=== PATIENT | male | born 1955 | race Caucasian/White ===

== ENCOUNTER 2017-06-12 08:31 | Emergency (ER) | payer OTHER ==
[~2017-06-12] VITALS: Ht 175.3 cm; Wt 81.7 kg
[~2017-06-12 08:31] MED LIST: ASPI325EC PO; ATOR40TA PO; B-12500 MCG PO; CLOP75 PO; DIAZ5 PO; Endocet 7.5-321 EACH PO; FENT25TP TOP; FISH1000 PO; FLAX PO; FOLI1 PO; FOLI400 PO; Garlic1000 MG PO; LISHYD2012 PO; MAGCHL64ER PO; NIAC250ER PO; NIAC500 PO; Nitrostat0.4 MG SL; OMEP40CA12 PO; OMEPRAZOLE MAGN20 MG PO; ONDA4ODT MM; Oxycodone HCl20 M1 PO; POTA10T PO; PRAV10 PO; Prinivil10 MG PO
[2017-06-12] MEDS ORDERED: IBUP800 PO (10:10)
[2017-06-12] MEDS ORDERED: Robaxin500 MG PO (10:10)
[2017-06-12] MEDS ORDERED: Norco 5-325 Ta1 EACH PO (10:10)
[2017-06-12] MEDS ORDERED: Voltaren100 GM TOP (10:10)
== END 2017-06-12 10:38 | disposition home or self-care (01) ==
LOC: ER 08:31
DX: M54.5 Low back pain (principal); I25.2 Old myocardial infarction; Z88.5 Allergy status to narcotic agent; Z79.899 Other long term (current) drug therapy; Z79.82 Long term (current) use of aspirin; Z90.49 Acquired absence of other specified parts of digestive tract; Z90.89 Acquired absence of other organs
CPT/HCPCS: 96372; 99283; J1885

== ENCOUNTER 2019-04-01 08:21 | Day surgery (SDC) | payer OTHER ==
[~2019-04-01] VITALS: Ht 172.7 cm; Wt 82.8 kg
[~2019-04-01 08:21] MED LIST changes: +IBUP800 PO; +Norco 5-325 Ta1 EACH PO; +Robaxin500 MG PO; +Voltaren100 GM TOP
[2019-04-01] MEDS ORDERED: TRIA50 (08:51)
== END 2019-04-01 10:26 | disposition home or self-care (01) ==
LOC: ORSCSDS 08:21
PROVIDERS: Internal Medicine Gastroenterology
PROC: 0DB58ZX Excision of Esophagus, Via Natural or Artificial Opening Endoscopic, Diagnostic (ICD-10-PCS; principal; 2019-04-01 09:45)
DX: K74.60 Unspecified cirrhosis of liver (principal); G47.30 Sleep apnea, unspecified; E78.5 Hyperlipidemia, unspecified; I10 Essential (primary) hypertension; I25.2 Old myocardial infarction; K76.0 Fatty (change of) liver, not elsewhere classified; E83.119 Hemochromatosis, unspecified; Z79.82 Long term (current) use of aspirin; Z79.899 Other long term (current) drug therapy
CPT/HCPCS: 88305; J2704; J7120

== ENCOUNTER 2020-02-04 14:40 | Day surgery (SDC) | payer OTHER ==
[~2020-02-04] VITALS: Ht 175.3 cm; Wt 82.5 kg
[~2020-02-04 14:40] MED LIST changes: +TRIA50
--- NOTE | 2020-02-04 17:30 | NUR ---
02/04/20 1730 Brooklyn Francis PT. SHAKING WHEN MORE AWAKE. PT. VERBALIZES BEING A LITTLE COLD. PT. GIVEN WARM BLANKETS. PT. DENIES PAIN OR NAUSEA.
--- NOTE | 2020-02-04 19:40 | NUR ---
02/04/201939 Brooklyn Francis 1934 PT. VERBALIZES READY TO GO HOME. PT. & HIS GIVEN DISCHARGED INSTRUCTIONS FOR HOME WITH UNDERSTANDING.
== END 2020-02-04 19:45 | disposition home or self-care (01) ==
LOC: ORSCSDS 14:40
PROVIDERS: Podiatrist Foot & Ankle Surgery
PROC: 0QSJ04Z Reposition Right Fibula with Internal Fixation Device, Open Approach (ICD-10-PCS; principal; 2020-02-04 16:00)
DX: S82.61XA Displaced fracture of lateral malleolus of right fibula, initial encounter for closed fracture (principal); I10 Essential (primary) hypertension; E78.5 Hyperlipidemia, unspecified; I25.10 Atherosclerotic heart disease of native coronary artery without angina pectoris; G47.33 Obstructive sleep apnea (adult) (pediatric); I25.2 Old myocardial infarction; Z79.899 Other long term (current) drug therapy; Z79.82 Long term (current) use of aspirin
CPT/HCPCS: C1713; J0171; J0690; J1100; J2250; J2405; J2704; J3010; J7120

== ENCOUNTER 2021-06-13 10:13 | Day surgery (SDC) | payer MEDICARE, OTHER ==
[~2021-06-13] VITALS: Ht 175.3 cm; Wt 87.2 kg
== END 2021-06-13 12:36 | disposition home or self-care (01) ==
LOC: ORSCSDS 10:13
PROVIDERS: Internal Medicine Gastroenterology
PROC: 0DJ08ZZ Inspection of Upper Intestinal Tract, Via Natural or Artificial Opening Endoscopic (ICD-10-PCS; principal; 2021-06-13 11:30)
DX: K74.60 Unspecified cirrhosis of liver (principal); Z13.810 Encounter for screening for upper gastrointestinal disorder; K44.9 Diaphragmatic hernia without obstruction or gangrene; I10 Essential (primary) hypertension; I25.2 Old myocardial infarction; K21.9 Gastro-esophageal reflux disease without esophagitis; G47.33 Obstructive sleep apnea (adult) (pediatric); I25.10 Atherosclerotic heart disease of native coronary artery without angina pectoris; Z87.891 Personal history of nicotine dependence
CPT/HCPCS: J2704; J7120

== ENCOUNTER → 2022-03-13 | Outpatient (CLI) | payer MEDICARE, OTHER ==
[2022-03-13 13:58] LABS: Percent Saturation 49.6 % (20.0-50.0)
== END | disposition home or self-care (01) ==
LOC: LAB SHORT 11:30 → LAB 11:30
PROVIDERS: Internal Medicine Hematology & Oncology
DX: E83.119 Hemochromatosis, unspecified (principal)
CPT/HCPCS: 82728; 83540; 83550

== ENCOUNTER 2023-03-19 10:41 | Day surgery (SDC) | payer MEDICARE, OTHER ==
[2023-03-19] MEDS ORDERED: ASPIR 8181 M1 PO (11:36)
[2023-03-19 11:44] VITALS: BP 152/81
--- NOTE | 2023-03-19 12:45 | NUR ---
03/19/23 1245 Any Guerrero 5ML NORMAL SALINE USED TO ELEVATE POLYP
== END 2023-03-19 13:15 | disposition home or self-care (01) ==
LOC: ORSCSDS 10:41
PROVIDERS: Internal Medicine Gastroenterology
PROC: 0DBK8ZX Excision of Ascending Colon, Via Natural or Artificial Opening Endoscopic, Diagnostic (ICD-10-PCS; principal; 2023-03-19 12:00)
DX: Z12.11 Encounter for screening for malignant neoplasm of colon (principal); Z86.010 Personal history of colon polyps; D12.2 Benign neoplasm of ascending colon; K57.30 Diverticulosis of large intestine without perforation or abscess without bleeding; K64.4 Residual hemorrhoidal skin tags; E83.110 Hereditary hemochromatosis; Z87.891 Personal history of nicotine dependence; Z79.82 Long term (current) use of aspirin; Z79.899 Other long term (current) drug therapy
CPT/HCPCS: 88305; J2704; J7120